=== PATIENT | female | born 1965 | race Caucasian/White ===

== ENCOUNTER 2021-10-10 18:50 | Inpatient (IN) | payer MEDICAID, SELFPAY ==
[~2021-10-10] VITALS: Ht 177.8 cm; Wt 104.0 kg
[2021-10-10 18:58] VITALS: BP_SYST 92
[2021-10-10] MEDS ORDERED: NACL 0.9% 1,000 ML IV ONE ×2 (19:15→21:00)
[2021-10-10 20:15] LABS: ANION GAP 12 (5-15); CALCIUM 8.7 mg/dL (8.4-11.0); CHLORIDE 107 mmol/L (98-107); CREATININE 0.97 mg/dL (0.55-1.30); GLUCOSE 91 mg/dL (70-99); POTASSIUM 3.7 mmol/L (3.5-5.1); SODIUM SERUM 143 mmol/L (136-145); UREA NITROGEN, BLOOD 14 mg/dL (8-21)
[2021-10-10 20:18] LABS: BASOPHILS % (AUTO) 0.3 % (0.0-2.0); EOSINOPHILS # (AUTO) 0.1 K/uL (0.0-0.4); EOSINOPHILS % (AUTO) 0.6 % (0.0-4.0); HEMATOCRIT 32.9 % (36-48); HEMOGLOBIN 10.8 g/dL (12.0-16.0); LYMPHOCYTES # (AUTO) 1.3 K/uL (1.0-5.5); LYMPHOCYTES % (AUTO) 16.3 % (20.5-51.5); MEAN CORPUSCULAR HEMOGLOBIN 28 pg (27-31); MEAN CORPUSCULAR HGB CONC 33 % (32-36); MEAN CORPUSCULAR VOLUME 85 fL (79.0-98.0); MONOCYTES # (AUTO) 0.9 K/uL (0.0-1.0); MONOCYTES % (AUTO) 11.3 % (1.7-9.3); NEUTROPHILS # (AUTO) 5.8 K/uL (1.8-7.7); NEUTROPHILS % (AUTO) 71.5 % (40.0-70.0); PLATELET COUNT (AUTO) 248 K/uL (130-430); RED CELL DISTRIBUTION WIDTH 17.2 % (9.0-15.0); WHITE BLOOD COUNT (AUTO) 8.1 K/uL (4.8-10.8)
[2021-10-10 20:21] LABS: INR 1.2 (0.8-1.2); PROTHROMBIN TIME 11.7 SECS (9.5-12.5)
[2021-10-10 20:25] LABS: GFR AFRICAN AMERICAN 76 mL/min (>90)
[2021-10-10 20:32] LABS: ALANINE AMINOTRANSFERASE 14 U/L (12-78); ALBUMIN 3.7 g/dL (3.4-4.8); ASPARTATE AMINOTRANSFERASE 13 U/L (10-37); LACTATE DEHYDROGENASE 164 U/L (81-234); TOTAL BILIRUBIN 0.6 mg/dL (0.0-1.0)
[2021-10-10 20:33] LABS: C-REACTIVE PROTEIN QUANT < 0.2 mg/dL (0-0.5)
[2021-10-10] MEDS ORDERED: APIX5TAB4 PO (23:00)
[2021-10-10] MEDS ORDERED: DIPH25CA83 PO (23:00)
[2021-10-10] MEDS ORDERED: LEVO112T5 PO (23:00)
[2021-10-10] MEDS ORDERED: PRO40 PO (23:00)
[2021-10-10] MEDS ORDERED: BECL10.62 IH (23:00)
[2021-10-10] MEDS ORDERED: IMI50 PO (23:00)
[2021-10-10] MEDS ORDERED: IBUP-1970 PO (23:00)
[2021-10-10] MEDS ORDERED: LIP10 PO (23:00)
[2021-10-10] MEDS ORDERED: CYAN100010 PO (23:00)
[2021-10-10] MEDS ORDERED: HYDR-3610 PO (23:00)
[2021-10-10] MEDS ORDERED: ONDA-8 TL (23:00)
[2021-10-10] MEDS ORDERED: TIOT4MIS3 IH (23:00)
[2021-10-10] MEDS ORDERED: VITD400 PO (23:00)
[2021-10-10] MEDS ORDERED: ALBU2.5V7 INH (23:00)
[2021-10-10] MEDS ORDERED: ASCO500T20 PO (23:00)
[2021-10-10] MEDS ORDERED: NITSL SL (23:00)
[2021-10-10 23:15] LABS: BILIRUBIN,URINE NEGATIVE (NEGATIVE); BLOOD, URINE NEGATIVE (NEGATIVE); CLARITY/URINE SL CLOUDY (CLEAR); COLOR,URINE YELLOW (YELLOW); GLUCOSE,URINE NEGATIVE (NEGATIVE); KETONES,URINE NEGATIVE (NEGATIVE); LEUKOCYTE ESTERASE ,URINE 1+ (NEGATIVE); NITRITE, URINE NEGATIVE (NEGATIVE); PROTEIN URINE 1+ (NEGATIVE)
[2021-10-10 23:27] VITALS: BP_SYST 127
[2021-10-11] VITALS (7 sets, daily range): BP systolic 134–155
[2021-10-11] MEDS: NACL 0.9% 1,000 ML IV SCH ×3 (02:47→12:50)
[2021-10-11 03:45] LABS: BACTERIA,URINE MODERATE /HPF (None Seen); MUCUS,URINE None Seen /LPF (None Seen); RBC,URINE 0-3 /HPF (0-3); URINE AMORPHOUS PHOSPHATES 1+ /HPF (None Seen)
[2021-10-11 08:27] LABS: BASOPHILS % (AUTO) 0.2 % (0.0-2.0); EOSINOPHILS # (AUTO) 0.1 K/uL (0.0-0.4); EOSINOPHILS % (AUTO) 0.8 % (0.0-4.0); HEMATOCRIT 29.5 % (36-48); HEMOGLOBIN 9.7 g/dL (12.0-16.0); LYMPHOCYTES # (AUTO) 1.4 K/uL (1.0-5.5); LYMPHOCYTES % (AUTO) 19.7 % (20.5-51.5); MEAN CORPUSCULAR HEMOGLOBIN 28 pg (27-31); MEAN CORPUSCULAR HGB CONC 33 % (32-36); MEAN CORPUSCULAR VOLUME 85 fL (79.0-98.0); MONOCYTES # (AUTO) 0.7 K/uL (0.0-1.0); MONOCYTES % (AUTO) 9.5 % (1.7-9.3); NEUTROPHILS # (AUTO) 4.8 K/uL (1.8-7.7); NEUTROPHILS % (AUTO) 69.8 % (40.0-70.0); PLATELET COUNT (AUTO) 209 K/uL (130-430); RED BLOOD CELL COUNT(AUTO) 3.48 MIL/uL (4.2-6.2); RED CELL DISTRIBUTION WIDTH 17.2 % (9.0-15.0); WHITE BLOOD COUNT (AUTO) 6.9 K/uL (4.8-10.8)
[2021-10-11 08:42] LABS: CALCIUM 7.7 mg/dL (8.4-11.0); CREATININE 0.76 mg/dL (0.55-1.30); POTASSIUM 3.7 mmol/L (3.5-5.1)
[2021-10-11 08:56] LABS: ALBUMIN 3.2 g/dL (3.4-4.8); THYROID STIMULATING HORMONE 1.38 uIu/mL (0.36-3.74); TOTAL BILIRUBIN 0.6 mg/dL (0.0-1.0)
[2021-10-11] MEDS ORDERED: DICYCLOMINE HCL 10 MG CAPSULE PO ONE (11:30)
[2021-10-11] MEDS: CHOLECALCIFEROL (VITAMIN D-3) 400 UNIT TABLET PO SCH (17:00)
[2021-10-11] MEDS ORDERED: NITROGLYCERIN 0.4 MG TAB.SUBL SL SCH (17:00)
[2021-10-11] MEDS ORDERED: ALBUTEROL SULFATE 0.083% 2.5 MG/3 ML VIAL.NEB INH PRN (17:00)
[2021-10-11] MEDS ORDERED: HYDROcodone/ACETAMIN 10-325 MG TAB PO SCH (17:00)
[2021-10-11] MEDS ORDERED: IBUPROFEN 800 MG TABLET PO PRN (17:00)
[2021-10-11] MEDS ORDERED: NALOXONE HCL 0.4 MG/ML AMP (NARCAN) IVP PRN ×2 (17:30)
[2021-10-11] MEDS ORDERED: HYDROcodone/ACETAMIN 10-325 MG TAB PO PRN (19:40)
[2021-10-11] MEDS: ONDANSETRON 4 MG ODT TAB TL PRN (20:20)
[2021-10-11] MEDS: DICYCLOMINE HCL 10 MG CAPSULE PO SCH (20:20)
[2021-10-11] MEDS: MORPHINE 2 MG/ML INJ. SYRINGE IVP PRN (20:29)
[2021-10-11] MEDS ORDERED: NON-FORMULARY MEDICATION (Apixaban (Eliquis) 5 MG) PO SCH (21:00)
[2021-10-12] VITALS (7 sets, daily range): BP systolic 124–145
[2021-10-12] MEDS: ONDANSETRON 4 MG ODT TAB TL PRN ×3 (01:47→20:20)
[2021-10-12] MEDS: MORPHINE 2 MG/ML INJ. SYRINGE IVP PRN ×4 (01:48→20:23)
[2021-10-12] MEDS: LEVOTHYROXINE SODIUM 0.112 MG TABLET PO SCH (08:47)
[2021-10-12] MEDS: PANTOPRAZOLE SODIUM 40 MG TAB PO SCH (08:47)
[2021-10-12] MEDS: DIPHENHYDRAMINE HCL 25 MG CAPSULE PO SCH (08:48)
[2021-10-12] MEDS: DICYCLOMINE HCL 10 MG CAPSULE PO SCH ×2 (08:49→20:20)
[2021-10-12] MEDS: ASCORBIC ACID 500 MG TABLET PO SCH ×2 (08:49→08:51)
[2021-10-12] MEDS: ATORVASTATIN 10 MG TABLET PO SCH (08:50)
[2021-10-12] MEDS: CYANOCOBALAMIN 1000 mCg TABLET PO SCH (08:51)
[2021-10-12] MEDS: CHOLECALCIFEROL (VITAMIN D-3) 400 UNIT TABLET PO SCH (09:00)
[2021-10-12] MEDS: SUMAtriptan SUCCINATE 50 MG TABLET PO SCH (20:20)
[2021-10-12] MEDS: APIXABAN 2.5 MG TABLET PO SCH (20:22)
[2021-10-12] MEDS: NACL 0.9% 1,000 ML IV SCH (20:39)
[2021-10-13] VITALS: BP_SYST 148
[2021-10-13] MEDS: MORPHINE 2 MG/ML INJ. SYRINGE IVP PRN ×6 (00:28→22:00)
[2021-10-13] MEDS: NACL 0.9% 1,000 ML IV SCH ×3 (03:02→16:20)
[2021-10-13 07:35] VITALS: BP_SYST 138
[2021-10-13 08:39] LABS: BASOPHILS % (AUTO) 0.3 % (0.0-2.0); EOSINOPHILS # (AUTO) 0.1 K/uL (0.0-0.4); EOSINOPHILS % (AUTO) 1.7 % (0.0-4.0); HEMATOCRIT 31.1 % (36-48); HEMOGLOBIN 10.2 g/dL (12.0-16.0); LYMPHOCYTES # (AUTO) 1.7 K/uL (1.0-5.5); LYMPHOCYTES % (AUTO) 27.2 % (20.5-51.5); MEAN CORPUSCULAR HEMOGLOBIN 28 pg (27-31); MEAN CORPUSCULAR HGB CONC 33 % (32-36); MEAN CORPUSCULAR VOLUME 84 fL (79.0-98.0); MONOCYTES # (AUTO) 0.8 K/uL (0.0-1.0); MONOCYTES % (AUTO) 12.6 % (1.7-9.3); NEUTROPHILS # (AUTO) 3.6 K/uL (1.8-7.7); NEUTROPHILS % (AUTO) 58.2 % (40.0-70.0); PLATELET COUNT (AUTO) 174 K/uL (130-430); RED BLOOD CELL COUNT(AUTO) 3.68 MIL/uL (4.2-6.2); RED CELL DISTRIBUTION WIDTH 16.7 % (9.0-15.0); WHITE BLOOD COUNT (AUTO) 6.2 K/uL (4.8-10.8)
[2021-10-13] MEDS: LEVOTHYROXINE SODIUM 0.112 MG TABLET PO SCH (08:42)
[2021-10-13] MEDS: ATORVASTATIN 10 MG TABLET PO SCH (08:42)
[2021-10-13] MEDS: CYANOCOBALAMIN 1000 mCg TABLET PO SCH (08:43)
[2021-10-13] MEDS: DICYCLOMINE HCL 10 MG CAPSULE PO SCH ×2 (08:43→21:08)
[2021-10-13] MEDS: ASCORBIC ACID 500 MG TABLET PO SCH (08:43)
[2021-10-13] MEDS: PANTOPRAZOLE SODIUM 40 MG TAB PO SCH (08:43)
[2021-10-13 08:45] LABS: CALCIUM 8.1 mg/dL (8.4-11.0); CREATININE 0.69 mg/dL (0.55-1.30); POTASSIUM 4.1 mmol/L (3.5-5.1)
[2021-10-13] MEDS: APIXABAN 2.5 MG TABLET PO SCH ×2 (08:51→21:09)
[2021-10-13] MEDS: DIPHENHYDRAMINE HCL 25 MG CAPSULE PO SCH (08:54)
[2021-10-13] MEDS: CHOLECALCIFEROL (VITAMIN D-3) 400 UNIT TABLET PO SCH (09:00)
[2021-10-13] MEDS ORDERED: DIPHENHYDRAMINE HCL 25 MG CAPSULE PO PRN (09:39)
[2021-10-13 11:00] VITALS: BP_SYST 128
[2021-10-13 20:00] VITALS: BP_SYST 128
[2021-10-13] MEDS: SUMAtriptan SUCCINATE 50 MG TABLET PO SCH (21:07)
[2021-10-13 22:00] VITALS: BP_SYST 128
[2021-10-14] VITALS: BP_SYST 122
[2021-10-14] MEDS: NACL 0.9% 1,000 ML IV SCH ×2 (00:05→14:56)
[2021-10-14] MEDS: MORPHINE 2 MG/ML INJ. SYRINGE IVP PRN ×5 (03:10→21:19)
[2021-10-14 08:00] VITALS: BP_SYST 126
[2021-10-14] MEDS: ASCORBIC ACID 500 MG TABLET PO SCH (10:08)
[2021-10-14] MEDS: DICYCLOMINE HCL 10 MG CAPSULE PO SCH ×2 (10:08→22:21)
[2021-10-14] MEDS: PANTOPRAZOLE SODIUM 40 MG TAB PO SCH (10:08)
[2021-10-14] MEDS: CYANOCOBALAMIN 1000 mCg TABLET PO SCH (10:08)
[2021-10-14] MEDS: LEVOTHYROXINE SODIUM 0.112 MG TABLET PO SCH (10:08)
[2021-10-14] MEDS: CHOLECALCIFEROL (VITAMIN D-3) 400 UNIT TABLET PO SCH (10:09)
[2021-10-14] MEDS: ATORVASTATIN 10 MG TABLET PO SCH (10:09)
[2021-10-14] MEDS: APIXABAN 2.5 MG TABLET PO SCH ×2 (10:11→22:20)
[2021-10-14 20:00] VITALS: BP_SYST 117
[2021-10-14] MEDS: SUMAtriptan SUCCINATE 50 MG TABLET PO SCH (22:21)
[2021-10-15] VITALS: BP_SYST 117
[2021-10-15] MEDS: NACL 0.9% 1,000 ML IV SCH ×3 (01:30→15:36)
[2021-10-15] MEDS: MORPHINE 2 MG/ML INJ. SYRINGE IVP PRN ×3 (03:04→12:29)
[2021-10-15 08:00] VITALS: BP_SYST 139
[2021-10-15] MEDS: CYANOCOBALAMIN 1000 mCg TABLET PO SCH (09:27)
[2021-10-15] MEDS: DICYCLOMINE HCL 10 MG CAPSULE PO SCH (09:27)
[2021-10-15] MEDS: LEVOTHYROXINE SODIUM 0.112 MG TABLET PO SCH (09:28)
[2021-10-15] MEDS: PANTOPRAZOLE SODIUM 40 MG TAB PO SCH (09:28)
[2021-10-15] MEDS: ATORVASTATIN 10 MG TABLET PO SCH (09:28)
[2021-10-15] MEDS: ASCORBIC ACID 500 MG TABLET PO SCH (09:28)
[2021-10-15] MEDS: CHOLECALCIFEROL (VITAMIN D-3) 400 UNIT TABLET PO SCH (09:28)
[2021-10-15] MEDS: APIXABAN 2.5 MG TABLET PO SCH (09:29)
[2021-10-15] MEDS: SUMAtriptan SUCCINATE 50 MG TABLET PO SCH (12:25)
[2021-10-15 12:45] VITALS: BP_SYST 140
[2021-10-15 16:00] VITALS: BP_SYST 137
[2021-10-15 17:03] VITALS: BP_SYST 137
== END 2021-10-15 19:00 | disposition home health service (06) | DRG 249 ==
LOC: SED 18:50 → STU 21:40 → OBSVTOIN 21:40 → STU 23:08
PROVIDERS: ADMIT Internal Medicine; ATTEND Internal Medicine
DX: K52.9 Noninfective gastroenteritis and colitis, unspecified (principal); D68.51 Activated protein C resistance; C90.00 Multiple myeloma not having achieved remission; E86.0 Dehydration; D64.9 Anemia, unspecified; E03.9 Hypothyroidism, unspecified; E78.5 Hyperlipidemia, unspecified; E66.9 Obesity, unspecified; M19.90 Unspecified osteoarthritis, unspecified site; I10 Essential (primary) hypertension; J44.9 Chronic obstructive pulmonary disease, unspecified; R07.89 Other chest pain; M62.50 Muscle wasting and atrophy, not elsewhere classified, unspecified site; R53.81 Other malaise; Z20.822 Contact with and (suspected) exposure to COVID-19; G89.4 Chronic pain syndrome; Z79.01 Long term (current) use of anticoagulants; Z80.3 Family history of malignant neoplasm of breast; Z86.711 Personal history of pulmonary embolism; Z86.718 Personal history of other venous thrombosis and embolism; Z87.891 Personal history of nicotine dependence; Z68.32 Body mass index [BMI] 32.0-32.9, adult; Z79.899 Other long term (current) drug therapy
CPT/HCPCS: 36415; 71045; 76376; 80048; 80053; 80061; 81000; 82550; 82803-TC; 82962; 83605; 83615; 83880; 84443; 84484; 85025; 85379; 85384; 85610-TC; 85730-TC; 86140; 87040; 87086; 87177; 87230-TC; 89055; 93005; 93306; G0378; J2270; Q0162; Q0163

== ENCOUNTER 2021-10-20 22:12 | Emergency (ER) | payer MEDICAID, SELFPAY ==
[~2021-10-20] VITALS: Ht 177.8 cm; Wt 106.6 kg
[2021-10-20 22:12] VITALS: BP_SYST 101
[~2021-10-20 22:12] MED LIST: ALBU2.5V7 INH; APIX5TAB4 PO; ASCO500T20 PO; BECL10.62 IH; CYAN100010 PO; DIPH25CA83 PO; HYDR-3610 PO; IBUP-1970 PO; IMI50 PO; LEVO112T5 PO; LIP10 PO; NITSL SL; ONDA-8 TL; PRO40 PO; TIOT4MIS3 IH; VITD400 PO
[2021-10-20] MEDS ORDERED: NACL 0.9% 1,000 ML IV ONE (22:45)
[2021-10-20 23:35] LABS: CALCIUM 8.8 mg/dL (8.4-11.0); CREATININE 1.2 mg/dL (0.55-1.30)
[2021-10-20 23:43] LABS: ALBUMIN 3.7 g/dL (3.4-4.8); TOTAL BILIRUBIN 0.9 mg/dL (0.0-1.0)
[2021-10-20 23:47] LABS: BASOPHILS % (AUTO) 0.3 % (0.0-2.0); EOSINOPHILS # (AUTO) 0.1 K/uL (0.0-0.4); EOSINOPHILS % (AUTO) 1.6 % (0.0-4.0); HEMATOCRIT 33.4 % (36-48); LYMPHOCYTES # (AUTO) 1.9 K/uL (1.0-5.5); LYMPHOCYTES % (AUTO) 22.6 % (20.5-51.5); MEAN CORPUSCULAR HEMOGLOBIN 28 pg (27-31); MEAN CORPUSCULAR HGB CONC 33 % (32-36); MEAN CORPUSCULAR VOLUME 85 fL (79.0-98.0); MONOCYTES # (AUTO) 0.8 K/uL (0.0-1.0); MONOCYTES % (AUTO) 9.6 % (1.7-9.3); NEUTROPHILS # (AUTO) 5.5 K/uL (1.8-7.7); NEUTROPHILS % (AUTO) 65.9 % (40.0-70.0); PLATELET COUNT (AUTO) 242 K/uL (130-430); RED BLOOD CELL COUNT(AUTO) 3.94 MIL/uL (4.2-6.2); RED CELL DISTRIBUTION WIDTH 17.4 % (9.0-15.0); WHITE BLOOD COUNT (AUTO) 8.4 K/uL (4.8-10.8)
[2021-10-21] MEDS ORDERED: KCL 10 mEq in 50 mL (PREMIX) 50 ML IV ONE (00:15)
[2021-10-21] MEDS ORDERED: POTASSIUM CHLORIDE 20 MEQ TAB.PRT.SR PO ONE (00:15)
[2021-10-21] MEDS ORDERED: METOCLOPRAMIDE HCL 10 MG/2 ML VIAL IVP ONE (01:00)
[2021-10-21] MEDS ORDERED: PANTOPRAZOLE SODIUM 40 MG/VIAL (PROTONIX) IVP ONE (01:00)
[2021-10-21] MEDS ORDERED: PROM25SU57 RC (04:02)
[2021-10-21] MEDS ORDERED: FAMO20TA8 PO (04:02)
[2021-10-21] MEDS ORDERED: HYOS0.1275 PO (04:02)
[2021-10-21] MEDS ORDERED: TRAM50TA PO (04:02)
[2021-10-21] MEDS ORDERED: POTA-197 PO (04:07)
[2021-10-21 05:00] VITALS: BP_SYST 128
[2021-10-28] MEDS ORDERED: LIP10 PO (12:42)
[2021-10-28] MEDS ORDERED: CYAN100T44 PO (12:42)
[2021-10-28] MEDS ORDERED: APIX5TAB4 PO (12:42)
[2021-10-28] MEDS ORDERED: ALBU2.5V7 INH (12:42)
[2021-10-28] MEDS ORDERED: BECL10.62 INH (12:42)
[2021-10-28] MEDS ORDERED: PROC10TA13 PO (12:42)
[2021-10-28] MEDS ORDERED: BEN50 PO (12:42)
[2021-10-28] MEDS ORDERED: IMI50 PO (12:42)
[2021-10-28] MEDS ORDERED: PRO40 PO (12:42)
[2021-10-28] MEDS ORDERED: HYDR-3610 PO (12:42)
[2021-10-28] MEDS ORDERED: IBUP-1970 PO (12:42)
[2021-10-28] MEDS ORDERED: LEVO112T5 PO (12:42)
[2021-10-28] MEDS ORDERED: NITR0.4T47 SL (12:42)
[2021-10-28] MEDS ORDERED: ASCO500T20 PO (12:42)
== END 2021-10-21 05:00 | disposition home or self-care (01) ==
LOC: SED 22:12
DX: E86.0 Dehydration (principal); R55 Syncope and collapse; R19.7 Diarrhea, unspecified; I10 Essential (primary) hypertension; J44.9 Chronic obstructive pulmonary disease, unspecified; Z79.899 Other long term (current) drug therapy
CPT/HCPCS: 36415; 71045; 74021; 80053; 83735; 84484; 85025; 96361 ×2; 96374; 96375; 99284; C9113; J2765; J3480; J7030; 99285